=== PATIENT | female | born 1980 | race Caucasian/White ===

== ENCOUNTER → 2016-11-06 | Outpatient (REF) | payer BC ==
[2016-11-06 19:57] LABS: LUTEINIZING HORMONE 54.8 mIU/mL
[2016-11-06 19:58] LABS: FOLLICLE STIMULATING HORMONE 87.9 mIU/mL
== END ==
LOC: M LAB REF 16:59
PROVIDERS: ATTEND Internal Medicine
DX: Z80.3 Family history of malignant neoplasm of breast (principal)

== ENCOUNTER → 2018-02-06 | Outpatient (REF) | payer BC ==
[2018-02-06 16:46] LABS: LUTEINIZING HORMONE 19.5 mIU/mL
== END ==
LOC: M LABDRAW1 14:22
DX: N95.0 Postmenopausal bleeding (principal)
CPT/HCPCS: 83001

== ENCOUNTER 2020-10-02 11:39 | Emergency (ER) | payer BC, OTHER ==
[~2020-10-02] VITALS: Ht 162.6 cm; Wt 81.3 kg
[2020-10-02] MEDS ORDERED: SERT-141 PO (12:25)
[2020-10-02] MEDS ORDERED: ESTR1TAB9 PO (12:25)
[2020-10-02] MEDS ORDERED: IBUP-1022 PO (12:25)
[2020-10-02 13:31] LABS: BASO % 0.4 % (0.0-1.0); EOS % 0.5 % (0.0-3.0); HEMOGLOBIN 12.8 g/dl (12.0-15.5); LYMPH # 2.7 10^3/uL (1.5-5.0); LYMPH % 32.8 % (24.0-44.0); MEAN CORPUSCULAR HEMOGLOBIN 25.7 pg (27.0-33.0); MEAN CORPUSCULAR HGB CONC 31.2 g/dl (32.0-36.5); MEAN CORPUSCULAR VOLUME 82.3 fl (80.0-96.0); MONO # 0.5 10^3/uL (0.0-0.8); MONO % 6.5 % (2.0-8.0); NEUTROPHILS % 59.6 % (36.0-66.0); PLATELET COUNT, AUTOMATED 241 10^3/uL (150-450); RED BLOOD COUNT 4.98 10^6/uL (4.00-5.40); WHITE BLOOD COUNT 8.3 10^3/uL (4.0-10.0)
--- NOTE | 2020-10-02 13:51 | REP ---
INDICATION: L calf pain r/o DVT COMPARISON: None. TECHNIQUE: Barrientos scale and color Doppler evaluation using linear high frequency transducer. FINDINGS: Ultrasound examination of the left lower extremity deep venous structures from the common femoral vein through the calf/ankle to include the peroneal, and tibial veins demonstrates normal compressibility flow and wave patterns in response to respiration and augmentation. There is no evidence for deep venous thrombosis. Contralateral CFV is patent and normal. IMPRESSION: No evidence for deep venous thrombosis. <Electronically signed by Lincoln Ervin > 10/02/20 [id number]
[2020-10-02 13:59] LABS: ALBUMIN 3.9 GM/DL (3.2-5.2); ALT/SGPT 22 U/L (12-78); BILIRUBIN,DIRECT < 0.1 MG/DL (0.0-0.2); BILIRUBIN,TOTAL 0.4 MG/DL (0.2-1.0); BLOOD UREA NITROGEN 14 MG/DL (7-18); CALCIUM LEVEL 8.9 MG/DL (8.5-10.1); CARBON DIOXIDE LEVEL 27 MEQ/L (21-32); CHLORIDE LEVEL 107 MEQ/L (98-107); CK-MB VALUE MASS < 1.0 NG/ML (<3.6); CPK CREATINE PHOSPHOKINASE 95 U/L (26-192); CREATININE FOR GFR 0.92 MG/DL (0.55-1.30); FREE T4 0.89 NG/DL (0.76-1.46); GLOMERULAR FILTRATION RATE > 60.0 (>60); GLUCOSE, FASTING 90 MG/DL (70-100); HCG, SERUM QUALITATIVE NEGATIVE (NEGATIVE); LIPASE 137 U/L (73-393); MB/CK RELATIVE INDEX 1.05 (< OR =4); POTASSIUM SERUM 4.1 MEQ/L (3.5-5.1); SODIUM LEVEL 139 MEQ/L (136-145); TOTAL PROTEIN 7.1 GM/DL (6.4-8.2); TROPONIN I < 0.02 NG/ML (< 0.10)
[2020-10-02] MEDS ORDERED: ISOVUE-370 76% 100ML VIAL As Ordered ONE (14:44)
--- NOTE | 2020-10-02 15:51 | REP ---
INDICATION: vag bleeding states postmenopausal COMPARISON: 02/06/2018 TECHNIQUE: Transabdominal pelvic ultrasound followed by transvaginal examination for better evaluation of the endometrium and adnexa with color Doppler evaluation of the ovaries. FINDINGS: Bladder is unremarkable and measures 6.5 x 10.2 x 10.5 cm. Anteverted uterus measures 6.9 x 3.2 x 4.3 cm. The endometrial complex measures 3.0 mm thickness. 5 mm hypoechoic anterior intramural fibroid noted. Bilateral ovaries are normal in appearance and vascularity without evidence for torsion. Right ovary measures 1.9 x 1.0 x 1.9 cm; R I = 0.66. Left ovary measures 2.3 x 1.1 x 1.3 cm; R I = 0.47. No pelvic fluid or adnexal mass lesion. IMPRESSION: 1. Small intramural fibroid suggested. 2. Otherwise normal examination. Normal ovaries without torsion. 3. No pelvic free fluid. <Electronically signed by Lincoln Ervin > 10/02/20 [id number]
--- NOTE | 2020-10-02 15:58 | REP ---
INDICATION: chest pain r/o PE COMPARISON: None. TECHNIQUE: Axial contrast enhanced images from the thoracic inlet to the upper abdomen using pulmonary embolus technique with multiplanar re-formations. 75 ml Isovue 370 intravenous contrast material administered without complication. This CT examination was performed using the following dose reduction techniques: Automated exposure control, adjustment of mA and/or kv according to the patient's size, and use of iterative reconstruction technique. FINDINGS: Satisfactory enhancement of the pulmonary vasculature is achieved and no filling defects are identified to suggest pulmonary embolus. Further evaluation of the mediastinum demonstrates normal thoracic aorta, heart and pericardium. The bilateral lung kay are well aerated and clear without consolidation pleural effusion or pneumothorax. Tracheobronchial tree is patent. No nodule or mass lesion is identified. No adenopathy noted. Surrounding musculoskeletal structures intact IMPRESSION: No evidence for pulmonary embolus. No acute mediastinal or pleural parenchymal process. <Electronically signed by Lincoln Ervin > 10/02/20 [id number]
[2020-10-02 16:52] VITALS: BP 109/59
--- NOTE | 2020-10-02 19:33 | ECGEPIP ---
[facility] - ED Test Date: 2020-10-02 Pat Name: SINTIA MCGREGOR Department: Room: - Gender: Female Workgroup Leader: franc : 1980 Requested By: Mic Lynch Order Number: [id number] Reading MD: Mic Lynch Measurements Intervals [place] Rate: 69 P: 35 [place]: 126 QRS: 13 QRSD: 98 T: 32 QT: 418 QTc: 447 Interpretive Statements Normal sinus rhythm Nonspecific ST T wave changes No prior ECG for comparison Electronically Signed on 10-02-2020 19:33:41 EDT by Mic Lynch
== END 2020-10-02 17:15 | disposition home or self-care (01) ==
LOC: M ED 11:39
DX: N93.9 Abnormal uterine and vaginal bleeding, unspecified (principal); M79.662 Pain in left lower leg; J45.909 Unspecified asthma, uncomplicated; F41.9 Anxiety disorder, unspecified; F33.9 Major depressive disorder, recurrent, unspecified; Z88.0 Allergy status to penicillin; Z88.2 Allergy status to sulfonamides; Z88.8 Allergy status to other drugs, medicaments and biological substances; Z79.899 Other long term (current) drug therapy
CPT/HCPCS: 36415; 71275; 76830; 76856; 80048; 80076; 82550; 82553; 83690; 84439; 84443; 84484; 84703; 85025; 93005; 93041; 93971; 93976; 94760; 99284; Q9967

== ENCOUNTER → 2020-11-15 | Outpatient (CLI) | payer BC ==
[~2020-11-15] MED LIST: ESTR1TAB9 PO; IBUP-1022 PO; SERT-141 PO
[2020-11-15 18:34] LABS: LUTEINIZING HORMONE 12.8 mIU/mL
[2020-11-16 07:55] LABS: FOLLICLE STIMULATING HORMONE 27.6 mIU/mL
== END ==
LOC: M LAB 17:13
PROVIDERS: ATTEND Obstetrics & Gynecology
DX: E28.310 Symptomatic premature menopause (principal)

== ENCOUNTER → 2022-02-26 | Outpatient (CLI) | payer BC | LOC: M WUC 13:57 | PROVIDERS: ATTEND Student in an Organized Health Care Education/Training Program | DX: M79.671 Pain in right foot (principal) ==

== ENCOUNTER → 2023-06-12 | Outpatient (REF) | payer BC ==
[2023-06-13 11:26] LABS: IRON (FE) 57 UG/DL (50-170); PERCENT SATURATION 15.4 % (13.2-45.0); TOTAL IRON BINDING CAPACITY 369 UG/DL (250-425)
[2023-06-13 11:28] LABS: FERRITIN 34.4 NG/ML (7.3-270.7)
[2023-06-13 11:29] LABS: FOLATE > 24.0 NG/ML (>5.4); VITAMIN B12 LEVEL 571 PG/ML (211-911)
== END ==
LOC: M LAB REF 10:17
PROVIDERS: ATTEND Internal Medicine
DX: D64.9 Anemia, unspecified (principal)